=== PATIENT | male | born 1945 | race Caucasian/White ===

== ENCOUNTER → 2018-11-26 | Day surgery (SDC) | payer OTHER, MEDICARE ==
[2018-11-22 12:06] VITALS: BMI 29.8
[~2018-11-26] MED LIST: BUPIVACAINE HCL/PF 0.5% (5 MG/ML) 30 ML VIAL IJ ONE; DEXAMETHASONE SOD PHOSPHATE/PF 10 MG/ML SDV ONE; GUM MASTIC/STORAX/MSAL/ALCOHOL 1 DRP DROPSBTL MC ONE; LIDOCAINE 1%/EPI 1:100000 (20 ML MULTI DOSE VIAL) ONE; LIDOCAINE 1%/EPI 1:100000 (50 ML MULTI DOSE VIAL) INF ONE; MIDAZOLAM HCL 2 MG/2 ML SINGLE DOSE VIAL ONE; ROCURONIUM BROMIDE 50 MG/5 ML SYRINGE ONE; SUCCINYLCHOLINE CHLORIDE 200 MG/10 ML SYRINGE ONE; ePHEDrine SULFATE 50 MG/1 ML AMPULE ONE; methylPREDNISolone ACET (DEPO) 40 MG/1 ML VIAL ONE; oxyCODONE HCL 10 MG SUSTAINED ACTING TABLET PO ONE
[2018-11-26 09:39] VITALS: TEMP 97.5
--- NOTE | 2018-11-26 10:44 | OP ---
DATE OF OPERATION: 11/26/2018 PREOPERATIVE DIAGNOSIS: Spinal stenosis L3-4. POSTOPERATIVE DIAGNOSIS: Spinal stenosis L3-4. PROCEDURE PERFORMED: Procedure aborted. COMPLICATIONS: Patient developed a low heart rate. DISPOSITION: Patient brought to the PACU in stable condition. INDICATIONS FOR SURGERY: Patient is a 73-year-old gentleman who is scheduled to have a laminectomy. DESCRIPTION OF PROCEDURE: Patient was brought to the operating room. A spinal anesthesia was given. He was placed prone onto the Sal frame. While prone, the patient's heart rate decreased. He was given medicine. At that point, the decision was made to place him supine, and the decision was made to cancel the surgery. The patient was brought back to the PACU for further workup. His surgery will be rescheduled. SABIHA BALDWIN M.D. [id number] MTDD
[2018-11-26 12:52] VITALS: BP 155/83; PULSE 81
--- NOTE | 2018-11-27 11:22 | EKG ---
Test Reason : Blood Pressure : / mmHG Vent. Rate : 087 BPM Atrial Rate : 087 BPM P-R Int : 156 ms QRS Dur : 096 ms QT Int : 366 ms P-R-T Axes : 039 020 016 degrees QTc Int : 440 ms NORMAL SINUS RHYTHM NORMAL ECG NO PREVIOUS ECGS AVAILABLE Confirmed by Rah Flores MD ([id number]) on 11/27/2018 11:22:07 AM Referred By: Walker Stark Confirmed By:Rah Flores MD
== END | disposition home or self-care (01) ==
LOC: FASU 05:56
PROVIDERS: ATTEND Orthopaedic Surgery Orthopaedic Surgery of the Spine
PROC: 01NB0ZZ Release Lumbar Nerve, Open Approach (ICD-10-PCS; principal; 2018-11-26 08:15)
DX: M48.061 Spinal stenosis, lumbar region without neurogenic claudication (principal); Z53.09 Procedure and treatment not carried out because of other contraindication
CPT/HCPCS: 82962; 93005; 94760

== ENCOUNTER 2018-12-24 06:03 | Day surgery (SDC) | payer OTHER, MEDICARE ==
[2018-12-17 11:38] VITALS: BMI 30.1
[~2018-12-24 06:03] MED LIST changes: -BUPIVACAINE HCL/PF 0.5% (5 MG/ML) 30 ML VIAL IJ ONE; -DEXAMETHASONE SOD PHOSPHATE/PF 10 MG/ML SDV ONE; -GUM MASTIC/STORAX/MSAL/ALCOHOL 1 DRP DROPSBTL MC ONE; +LIDOCAINE 1%/EPI 1:100000 (20 ML MULTI DOSE VIAL) INF ONE; -LIDOCAINE 1%/EPI 1:100000 (20 ML MULTI DOSE VIAL) ONE; -LIDOCAINE 1%/EPI 1:100000 (50 ML MULTI DOSE VIAL) INF ONE; -MIDAZOLAM HCL 2 MG/2 ML SINGLE DOSE VIAL ONE; -ROCURONIUM BROMIDE 50 MG/5 ML SYRINGE ONE; -SUCCINYLCHOLINE CHLORIDE 200 MG/10 ML SYRINGE ONE; -ePHEDrine SULFATE 50 MG/1 ML AMPULE ONE; +methylPREDNISolone ACET (DEPO) 40 MG/1 ML VIAL IM ONE; -methylPREDNISolone ACET (DEPO) 40 MG/1 ML VIAL ONE; -oxyCODONE HCL 10 MG SUSTAINED ACTING TABLET PO ONE
[2018-12-24] MEDS ORDERED: BUPIVACAINE HCL/PF 0.5% (5MG/ML) 10 ML VIAL ONE (06:58)
[2018-12-24] MEDS ORDERED: GUM MASTIC/STORAX/MSAL/ALCOHOL 1 DRP DROPSBTL MC ONE (07:04)
[2018-12-24] MEDS ORDERED: methylPREDNISolone ACET (DEPO) 40 MG/1 ML VIAL ONE (07:04)
[2018-12-24] MEDS ORDERED: LIDOCAINE 1%/EPI 1:100000 (20 ML MULTI DOSE VIAL) ONE (07:04)
[2018-12-24] MEDS ORDERED: MIDAZOLAM HCL 2 MG/2 ML SINGLE DOSE VIAL ONE ×2 (07:30→08:22)
[2018-12-24] MEDS ORDERED: BUPIVACAINE HCL/PF 0.5% (5 MG/ML) 30 ML VIAL IJ ONE (07:30)
--- NOTE | 2018-12-24 07:56 | HP ---
History & Physical Update - History History: No Change - Physical Physical: No Change - Assessment Assessment: No Change - Plan Plan: No Change
[2018-12-24] MEDS ORDERED: PROPOFOL 20 ML ONE ×2 (08:21)
[2018-12-24] MEDS ORDERED: SUCCINYLCHOLINE CHLORIDE 200 MG/10 ML SYRINGE ONE (08:21)
[2018-12-24] MEDS ORDERED: ePHEDrine SULFATE 50 MG/1 ML AMPULE ONE (08:21)
[2018-12-24] MEDS ORDERED: ceFAZolin SODIUM 1 GM VIAL IVPB ONE (08:45)
[2018-12-24] MEDS ORDERED: ceFAZolin SODIUM 1 GM VIAL ONE (08:58)
[2018-12-24] MEDS ORDERED: GLYCOPYRROLATE 0.2 MG/1 ML VIAL ONE (08:58)
[2018-12-24] MEDS ORDERED: KETOROLAC TROMETHAMINE 30 MG/1 ML VIAL ONE (08:58)
[2018-12-24] MEDS ORDERED: DEXAMETHASONE SOD PHOSPHATE 4 MG/1 ML VIAL ONE (08:58)
[2018-12-24] MEDS ORDERED: PHENYLEPHRINE HCL 10 MG/1 ML SINGLE DOSE VIAL ONE (08:58)
[2018-12-24] MEDS ORDERED: SODIUM CHLORIDE 0.9% P/F 10 ML VIAL IJ ONE (08:58)
[2018-12-24] MEDS ORDERED: ONDANSETRON 4 MG/2 ML VIAL ONE (08:58)
[2018-12-24] MEDS ORDERED: LIDOCAINE 1%/EPI 1:100000 (20 ML MULTI DOSE VIAL) INF ONE (09:05)
[2018-12-24] MEDS ORDERED: methylPREDNISolone ACET (DEPO) 40 MG/1 ML VIAL IM ONE (09:53)
--- NOTE | 2018-12-24 10:21 | OP ---
Operative Note - Note: Operative Date: 12/24/18 Pre-Operative Diagnosis: Chronic LBP with LE radiculopathy (R>L) Operation: L3/4 laminectomy (bilateral) Post-Operative Diagnosis: Same as Pre-op Surgeon: Walker Stark Radiology Assistant: Peter Samuels Anesthesia: Spinal Estimated Blood Loss (mls): 10 Fluid Volume Replaced (mls): 700 Operative Report Dictated: Yes
--- NOTE | 2018-12-24 10:22 | SURG ---
Surgery Welt Insole Channeler Note Welt Insole Channeler: Franklin Carranza PA-C Date of Service: 12/24/18 Diagnosis: Chronic low back pain with lower extremity radiculopathy (R>L) I was present for the entirety of the operative procedure. For further detail, please refer to operative report. Visit type - Case Type Case Type: Scheduled - New patient This patient is new to me today: Yes Date on this admission: 12/24/18
[2018-12-24] MEDS ORDERED: oxyCODONE HCL 5 MG TABLET PO PRN ×2 (10:58)
[2018-12-24] MEDS ORDERED: ONDANSETRON 4 MG/2 ML VIAL IVPUSH PRN (10:58)
[2018-12-24] MEDS ORDERED: PROMETHAZINE HCL 25 MG/1 ML VIAL IVPUSH PRN (10:58)
--- NOTE | 2018-12-24 11:12 | OP ---
DATE OF OPERATION: 12/24/2018 PREOPERATIVE DIAGNOSIS: Spinal stenosis L3-4. POSTOPERATIVE DIAGNOSIS: Spinal stenosis L3-4. PROCEDURE PERFORMED: Laminectomy L3-4. SURGEON: Walker Stark MD AUDIO VISUAL AIDE: MOISÉS Carlson ESTIMATED BLOOD LOSS: 50 mL. INTRAVENOUS FLUIDS: Per anesthesia. ANESTHESIA: Spinal/TLIP block. COMPLICATIONS: There were none. DISPOSITION: Patient brought to the PACU in stable condition. INDICATIONS FOR SURGERY: Patient is a 73-year-old gentleman who has been suffering from pain from his back down his legs. X-rays and MRI were completed, which noted that he had spinal stenosis at L3-4. He had gone through an exhaustive course of treatment for this, which included medications, physical therapy as well as injections. Unfortunately, his pain continued to persist despite all this. At this point, risks, benefits, and alternatives were discussed, and the patient consented to surgery. DESCRIPTION OF PROCEDURE: The patient was brought to the operating room by anesthesia staff. After appropriate patient identification was performed, spinal anesthesia was given. A TLIP block was also given. Patient was placed prone onto the OR bed with all areas and bony prominences well padded at this time. Two needles were placed into his back to gisela off the L3-4 section. X-ray was taken to confirm this was correct. Needle was removed, and 10 mL of lidocaine with epinephrine was injected into his back. At this time, his back was prepped and draped in a sterile manner. At this point, a time-out was completed. An incision was made from the top of L3 down to the bottom of L4. Dissection was carried down to the fascia. Fascia was split open at this time, and appropriate retractor was then placed in. A spinal needle was placed onto the L3 lamina to gisela off the L3-4 section. X-ray was taken to confirm this was correct. Needle was removed, and the interspinous ligament at L3-4 was removed. Portions of the L3, L4 spinous process was removed. The flavum was identified. It was removed. A complete decompression was performed such that by the end of the procedure, the L4 nerve root appeared to be well decompressed. All bleeding was well controlled at this time. Steri-Strips was placed over the nerve root. FloSeal was placed over that. The fascia was closed with a No. 1 Vicryl suture. Subcutaneous tissue was closed with 2-0 Vicryl suture. Skin was closed with 3-0 Monocryl suture. Dermabond was applied. Steri-Strips were applied. A sterile dressing was applied. Patient was placed supine on the OR bed and brought to the PACU in stable condition. Jose SOLIS/[id number]
[2018-12-24 11:41] VITALS: TEMP 98.6
[2018-12-24] MEDS ORDERED: traMADol HCL 50 MG TABLET ONE (12:49)
[2018-12-24 13:41] VITALS: BP 142/74; PULSE 96
== END 2018-12-24 13:40 | disposition home or self-care (01) ==
LOC: FASU 06:03
PROVIDERS: ATTEND Orthopaedic Surgery Orthopaedic Surgery of the Spine
PROC: 01NB0ZZ Release Lumbar Nerve, Open Approach (ICD-10-PCS; principal; 2018-12-24 09:13)
DX: M48.061 Spinal stenosis, lumbar region without neurogenic claudication (principal)
CPT/HCPCS: 72100-TC-FY; 76000-TC-FY; 82962; 94760